=== PATIENT | male | born 1995 | race Caucasian/White ===

== ENCOUNTER → 2017-04-08 | Outpatient (CLI) | payer OTHER ==
--- NOTE | 2017-04-08 08:40 | DIAGNOSTIC IMAGING REPORT ---
LEFT ANKLE MIN 3 VIEWS CLINICAL HISTORY: 21 years-old Male presenting with left lateral ankle pain, no recent injury. TECHNIQUE: Frontal, mortise, and lateral views of the left ankle were obtained. COMPARISON: None. FINDINGS: Ankle mortise intact. No acute fracture or malalignment. Osseous excrescences at the anterior ankle joint. Ossification also noted at the posterior ankle joint. Ankle joint effusion may be present. IMPRESSION: 1. No acute osseous injury of the left ankle. 2. Possible loose bodies, posttraumatic degenerative change, or less likely osteochondroma at the anterior ankle joint. Loose body or accessory ossicle noted at the posterior ankle joint. This would be better evaluated with cross-sectional imaging. Electronically signed by: Diogenes Major M.D. 04/08/2017 8:39 AM Dictated Date/Time: 04/08/2017 8:35 AM
== END | disposition home or self-care (01) ==
LOC: C.RDSM 12:00
PROVIDERS: ATTEND Family Medicine
DX: M25.572 Pain in left ankle and joints of left foot (principal)

== ENCOUNTER → 2017-04-17 | Outpatient (CLI) | payer OTHER ==
--- NOTE | 2017-04-17 22:22 | DIAGNOSTIC IMAGING REPORT ---
LEFT ANKLE MRI HISTORY: Left ANKLE PAIN TECHNIQUE: Multiplanar multisequence MRI of the left ankle was performed without the use of intravenous contrast. COMPARISON STUDY: Left ankle radiograph 04/08/2017. FINDINGS: No acute fracture or dislocation within the left ankle. Confirmation of the multiple intra-articular loose bodies mostly located within the anterior and lateral joint spaces. Dominant loose body at the anterolateral joint space measures 1.1 cm. Thickening and mild edema within the anterior talofibular ligament consistent with acute on chronic sprain. The flexor, extensor, peroneal, and Achilles tendons are intact. The medial stabilizing ligaments are maintained. There is also thickening within the anterior tibiofibular ligament. Mild soft tissue edema within the anterolateral ankle. No evidence for osteochondral lesion. Cartilage spaces are maintained for age mild cartilage space narrowing at the tibiotalar joint. Small ankle effusion. The sinus tarsi and plantar fascia are intact. IMPRESSION: 1. Thickening and mild edema within the anterior talofibular ligament consistent with an acute on chronic grade I sprain. 2. There is also thickening of the anterior tibiofibular ligament which can be due to chronic injury/sprain. 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 3. Multiple intra-articular loose bodies most pronounced within the anterior ankle joint. 4. Small ankle effusion. 5. No acute fracture or dislocation. Electronically signed by: Lucio Toledo M.D. 04/17/2017 10:20 PM Dictated Date/Time: 04/17/2017 10:09 PM
== END | disposition home or self-care (01) ==
LOC: C.MRI 20:35
PROVIDERS: ATTEND Family Medicine
DX: M25.572 Pain in left ankle and joints of left foot (principal); M25.472 Effusion, left ankle; R93.7 Abnormal findings on diagnostic imaging of other parts of musculoskeletal system